=== PATIENT | female | born 1995 | race Caucasian/White ===

== ENCOUNTER 2017-04-17 18:14 | Emergency (ER) | payer MEDICAID ==
[2017-04-17 18:25] VITALS: RESP 16; TEMP 97.8; BMI 27.4
[2017-04-17 20:11] VITALS: BP 110/66; PULSE 90; O2SAT 100
--- NOTE | 2017-04-17 20:21 | ED PDOC ---
Arrival/HPI - General Chief Complaint: Abnormal Skin Integrity Time Seen by Provider: 04/17/17 19:47 Historian: Patient - History of Present Illness Narrative History of Present Illness (Text): 04/17/17 20:18 21yo female with no PMHx present with complaint of abscess to her right breast x 4days. the mother by the bedside states patient gets this abscess intermittently, but is usually small and resolves after few days. this time it persisted for 4days and painful. did not take any medication. denies any fever, nausea, vomiting, any other complaint. Past Medical History - Provider Review Nursing Documentation Reviewed: Yes - Past History Past History: No Previous - Infectious Disease Hx of Infectious Diseases: None - Tetanus Immunization Tetanus Immunization: Unknown - Past Medical History Past Medical History: No Previous - Psychiatric Hx Depression: No Hx Emotional Abuse: No Hx Physical Abuse: No Hx Substance Use: No - Past Surgical History Past Surgical History: No Previous - Anesthesia Hx Anesthesia: No - Suicidal Assessment Feels Threatened In Home Enviroment: No Family/Social History - Physician Review Nursing Documentation Reviewed: Yes Family/Social History: Unknown Family HX Smoking Status: Never Smoked Hx Alcohol Use: No Hx Substance Use: No Hx Substance Use Treatment: No Allergies/Home Meds Allergies/Adverse Reactions: Allergies peach Allergy (Uncoded 04/17/17 18:24) RASH Review of Systems - Physician Review All systems were reviewed & negative as marked: Yes - Review of Systems Constitutional: Normal Eyes: Normal ENT: Normal Respiratory: Normal Cardiovascular: Normal Gastrointestinal: Normal Genitourinary Female: Normal Musculoskeletal: Normal Skin: Abscess Neurological: Normal Endocrine: Normal Hemo/Lymphatic: Normal Psychiatric: Normal Physical Exam Vital Signs Reviewed: Yes Vital Signs Temp Pulse Resp BP Pulse Ox 04/17/17 20:10 90 16 110/66 100 04/17/17 18:19 97.8 F 92 H 16 105/65 99 Temperature: Afebrile Blood Pressure: Normal Pulse: Regular Respiratory Rate: Normal Appearance: Positive for: Well-Appearing, Non-Toxic, Comfortable Pain Distress: None Mental Status: Positive for: Alert and Oriented X 3 - Systems Exam Head: Present: Atraumatic, Normocephalic Pupils: Present: PERRL Extroacular Muscles: Present: EOMI Conjunctiva: Present: Normal Mouth: Present: Moist Mucous Membranes Neck: Present: Normal Range of Motion Respiratory/Chest: Present: Clear to Auscultation, Good Air Exchange. No: Respiratory Distress, Accessory Muscle Use Cardiovascular: Present: Regular Rate and Rhythm, Normal S1, S2. No: Murmurs Abdomen: Present: Normal Bowel Sounds. No: Tenderness, Distention, Peritoneal Signs Back: Present: Normal Inspection Upper Extremity: Present: Normal Inspection. No: Cyanosis, Edema Lower Extremity: Present: Normal Inspection. No: Edema Neurological: Present: GCS=15, CN II-XII Intact, Speech Normal Skin: Present: Warm, Dry, Normal Color, Abscess (Approximately 3 x 4cm area of induration and central fluctuant abscess noted to right inferior breast intertrigious with the chest wall). No: Rashes Psychiatric: Present: Alert, Oriented x 3, Normal Insight, Normal Concentration Medical Decision Making - Medication Orders Current Medication Orders: Discontinued Medications Cephalexin Monohydrate (Keflex) 500 mg PO STAT STA PRN Reason: Protocol Stop: 04/17/17 19:49 Last Admin: 04/17/17 20:12 Dose: 500 mg Doxycycline Hyclate (Doryx) 100 mg PO STAT STA PRN Reason: Protocol Stop: 04/17/17 19:48 Last Admin: 04/17/17 20:11 Dose: 100 mg Ibuprofen (Motrin Tab) 600 mg PO STAT STA Stop: 04/17/17 19:50 Last Admin: 04/17/17 20:13 Dose: 600 mg MAR Pain/Vitals Document 04/17/17 20:13 MARCUS (Rec: 04/17/17 20:13 [id number]) Pain Reassessment Is This A Pain ReAssessment? Yes Sleep Is patient sleeping during reassessment? No Location Left, Right or Bilateral Left Pain Location Body Site Chest Description Intermittent Intensity 5 Scale Used Numeric Disposition/Present on Arrival - Present on Arrival Any Indicators Present on Arrival: No History of DVT/PE: No History of Uncontrolled Diabetes: No Urinary Catheter: No History of Decub. Ulcer: No History Surgical Site Infection Following: None - Disposition Have Diagnosis and Disposition been Completed?: Yes Diagnosis: Abscess Disposition: HOME/ ROUTINE Disposition Time: 20:25 Patient Plan: Discharge Condition: STABLE Discharge Instructions (ExitCare): Skin Abscess Additional Instructions: Apply warm compress to area Follow up with your Doctor Return to ED for any new or worsening symptoms Prescriptions: Cephalexin [Keflex] 500 mg PO TID #21 capsule Doxycycline Hyclate 100 mg PO BID #14 capsule Ibuprofen [Motrin Tab] 600 mg PO Q6 #20 tab Referrals: Brown Odonnell, [Primary Care Provider] - Follow up with primary
== END 2017-04-17 20:30 | disposition home or self-care (01) ==
LOC: ED 18:14
DX: N61.1 Abscess of the breast and nipple (principal)

== ENCOUNTER 2018-01-24 23:12 | Emergency (ER) | payer MEDICAID ==
[2018-01-24 23:30] VITALS: RESP 17
[2018-01-24 23:31] VITALS: BMI 26.1
--- NOTE | 2018-01-25 00:26 | ED PDOC ---
Arrival/HPI - General Chief Complaint: Back Pain Historian: Patient - History of Present Illness Narrative History of Present Illness (Text): 01/25/18 00:07 22yo female with no pmhx who present with complaint of left left sided upper back pain that radiates to her mid back. She reports intermittent history of this pain for the past 5years. States she have seen her PMD for the pain and was given analgesic for the back pain. saw a chiropractor and did physical therapy but still having the pain. States the pain was worse today and radiated to her mid back, but it usually radiates to her left arm. She denies trauma, focal weakness, urinary symptoms, saddle anesthesia, any other complaint. Past Medical History - Provider Review Nursing Documentation Reviewed: Yes - Past History Past History: No Previous - Infectious Disease Hx of Infectious Diseases: None - Tetanus Immunization Tetanus Immunization: Unknown - Past Medical History Past Medical History: No Previous - Psychiatric Hx Psychophysiologic Disorder: No Hx Substance Use: No - Past Surgical History Past Surgical History: No Previous - Anesthesia Hx Anesthesia: No - Suicidal Assessment Feels Threatened In Home Enviroment: No Family/Social History - Physician Review Nursing Documentation Reviewed: Yes Family/Social History: Unknown Family HX Smoking Status: Never Smoked Hx Alcohol Use: No Hx Substance Use: No Hx Substance Use Treatment: No Allergies/Home Meds Allergies/Adverse Reactions: Allergies peach Allergy (Uncoded 04/17/17 18:24) RASH Review of Systems - Physician Review All systems were reviewed & negative as marked: Yes - Review of Systems Constitutional: Normal Eyes: Normal ENT: Normal Respiratory: Normal Cardiovascular: Normal Gastrointestinal: Normal Genitourinary Female: Normal Musculoskeletal: Back Pain Skin: Normal Neurological: Normal Endocrine: Normal Hemo/Lymphatic: Normal Psychiatric: Normal Physical Exam Vital Signs Reviewed: Yes Vital Signs Temp Pulse Resp BP Pulse Ox 01/24/18 23:30 99.4 F 83 17 119/75 100 Temperature: Afebrile Blood Pressure: Normal Pulse: Regular Respiratory Rate: Normal Appearance: Positive for: Well-Appearing, Non-Toxic, Comfortable Pain Distress: None Mental Status: Positive for: Alert and Oriented X 3 - Systems Exam Head: Present: Atraumatic, Normocephalic Pupils: Present: PERRL Extroacular Muscles: Present: EOMI Conjunctiva: Present: Normal Mouth: Present: Moist Mucous Membranes Neck: Present: Normal Range of Motion Respiratory/Chest: Present: Clear to Auscultation, Good Air Exchange. No: Respiratory Distress, Accessory Muscle Use Cardiovascular: Present: Regular Rate and Rhythm, Normal S1, S2. No: Murmurs Abdomen: No: Tenderness, Distention, Peritoneal Signs Back: Present: Paraspinal Tenderness (LEft parathoracic tenderness). No: Midline Tenderness, Pain with Leg Raise Upper Extremity: Present: Normal Inspection. No: Cyanosis, Edema Lower Extremity: Present: Normal Inspection. No: Edema Neurological: Present: GCS=15, CN II-XII Intact, Speech Normal Skin: Present: Warm, Dry, Normal Color. No: Rashes Psychiatric: Present: Alert, Oriented x 3, Normal Insight, Normal Concentration Medical Decision Making ED Course and Treatment: 01/25/18 01:39 PT in ED for stated history. she ambulated to ED . She is neurologically intact Thoracic spine xray - No acute finding Pt's pain was controlled in ED with medication. Result was DW the pt. She was DC with ibuprofen 600mg and referred to her PMD/Ortho - RAD Interpretation Radiology Orders: 01/24/18 23:57 THORACIC SPINE [DORSAL (THORACIC) SPINE] [RAD] Stat - Medication Orders Current Medication Orders: Discontinued Medications Ketorolac Tromethamine (Toradol) 30 mg IM STAT STA Stop: 01/24/18 23:58 Disposition/Present on Arrival - Present on Arrival Any Indicators Present on Arrival: No History of DVT/PE: No History of Uncontrolled Diabetes: No Urinary Catheter: No History of Decub. Ulcer: No History Surgical Site Infection Following: None - Disposition Have Diagnosis and Disposition been Completed?: Yes Diagnosis: Thoracic back pain Disposition: HOME/ ROUTINE Disposition Time: 01:40 Patient Plan: Discharge Patient Problems: Current Active Problems Problem Status Onset Thoracic back pain Acute Condition: STABLE Discharge Instructions (ExitCare): Upper Back Pain Additional Instructions: Follow up with your Doctor Return to ED for any new symptoms Prescriptions: Ibuprofen [Motrin Tab] 600 mg PO Q6 #20 tab Referrals: Maribel Bennett DO [Primary Care Provider] - Follow up with primary Joe Figueroa MD [Staff Provider] - Follow up with primary Forms: OLSET (I[place]ic)
[2018-01-25 02:01] VITALS: BP 125/72; PULSE 88; TEMP 98.2; O2SAT 99
--- NOTE | 2018-01-25 10:31 | RAD ---
Date of service: 01/25/2018 HISTORY: back pain COMPARISON: No prior. FINDINGS: BONES: Alignment maintained. No fracture. DISC SPACES: Normal. SOFT TISSUES: Normal. OTHER FINDINGS: None. IMPRESSION: Unremarkable radiographs of the thoracic spine.
== END 2018-01-25 02:01 | disposition home or self-care (01) ==
LOC: ED 23:12
DX: M54.6 Pain in thoracic spine (principal)
CPT/HCPCS: 72070; 96372; 99283; J1885